=== PATIENT | male | born 1945 | race Caucasian/White ===

== ENCOUNTER 2018-11-06 14:30 | Emergency (ER) | payer MEDICARE, MEDICAID ==
[~2018-11-06] VITALS: Ht 182.9 cm; Wt 88.9 kg
--- NOTE | 2018-11-06 14:42 | NUR ---
ED Nurse Note: Pt came from [facility] s/p fall at 0500 this morning. Pt's xray results from SNF showed left shoulder dislocation. Pt denies having pain. No swelling or redness noted. Pt has a hx of right sided stroke w/ left sided deficit. Pt has DNR. Pt is A + O x4. Skin warm to touch.
[2018-11-06] MEDS ORDERED: XARELTO10 MG ORAL (14:43)
[2018-11-06] MEDS ORDERED: METOPROLOL SUCC50 MG ORAL (14:43)
[2018-11-06 14:45] VITALS: BP 126/74
--- NOTE | 2018-11-06 15:10 | Emergency Room Report ---
History of Present Illness General Chief Complaint: Multiple Trauma/Fall Source: Patient, Medical Record (Logan Pavon MD) Present Illness HPI Patient is a 73-year-old male sent in by residential after a fall. Patient had a fall this morning approximately 5 AM. He was noted to be taking anticoagulation. He reports of increased left upper extremity pain and difficulty with movement. Patient had prior history of anticoagulant use. He is currently in atrial fibrillation. He denies any other locations of pain currently. He was noted to have prior DNR status. (Logan Pavon MD) Allergies: Coded Allergies: No Known Allergies (Unverified , 11/06/18) Patient History Reviewed Nursing Documentation: PMH: Agreed; PSxH: Agreed (Logan Pavon MD) Nursing Documentation-PMH Past Medical History: No History, Except For Hx Cerebrovascular Accident: Yes (Logan Pavon MD) Review of Systems All Other Systems: negative except mentioned in HPI (Logan Pavon MD) Physical Exam Vital Signs Date Time Temp Pulse Resp B/P (MAP) Pulse Ox O2 Delivery O2 Flow Rate FiO2 11/06/18 14:35 97.5 86 16 126/74 98 Room Air 11/06/18 14:45 99 Sp02 EP Interpretation: reviewed, normal General Appearance: normal inspection, well appearing, no apparent distress, alert, Chronically Ill Head: atraumatic ENT: normal ENT inspection, hearing grossly normal, normal voice Neck: normal inspection, full range of motion, supple, no bony tend Respiratory: normal inspection, lungs clear, normal breath sounds, no respiratory distress, no retraction, no wheezing Cardiovascular #1: regular rate, rhythm, no edema Gastrointestinal: normal inspection, normal bowel sounds, non tender, soft, no guarding, no hernia Genitourinary: no CVA tenderness Musculoskeletal: back normal, decreased range of motion, other - left shoulder deformity without any soft tissue swelling Neurologic: normal inspection, alert, responsive, speech normal Psychiatric: normal inspection, judgement/insight normal, mood/affect normal Skin: normal inspection, normal color, no rash (Logan Pavon MD) Procedures Joint Reduction Joint Reduction : Consent: Verbal Joint Reduction Site: shoulder (L) Procedural Sedation: No Reduction Attempts: One Pre-Procedure NV Exam: Yes Post-Procedure NV Exam: Yes Post Joint Reduction Film: joint reduced Patient Tolerated: Well Complications: None Progress Anterior dislocation. Reduction with flexion of the elbow, abduction and raising the elbow towards the shoulder. Joint reduced. Patient tolerated the procedure well. Distal neurovascular intact. (Antonio Keyes MD) Medical Decision Making Diagnostic Impression: Primary Impression: Fall Additional Impressions: Shoulder joint dislocation Atrial fibrillation ER Course Patient presented for left shoulder pain after a fall. Differential diagnosis include was not limited to fracture, dislocation, AC separation, hematoma, sprain among others. Because of complexity of patient's case imaging studies were ordered. X-ray imaging of the left shoulder 3 views interpreted by radiology showed anterior shoulder dislocation. Patient shoulder was reduced with external rotation and elevation. The patient tolerated this well.Patient' s postprocedure x-ray showed no evident fracture.Patient was given oral metoprolol was noted to have improvement his heart rate. Patient was noted to have long-standing history of atrial fibrillation. Patient was placed in a shoulder immobilizer. Patient was discharged back to his residential. (Logan Pavon MD) Last Vital Signs Date Time Temp Pulse Resp B/P (MAP) Pulse Ox O2 Delivery O2 Flow Rate FiO2 11/06/18 14:45 137 13 Room Air 99 11/06/18 14:45 97.5 126/74 99 Status: improved (Logan Pavon MD) Disposition: [facility] Condition: Stable Logan Pavon MD Nov 06, 2018 15:10 Antonio Keyes MD Nov 06, 2018 15:46
--- NOTE | 2018-11-06 15:16 | NUR ---
ED Nurse Note: Notified radiology of xray order.
--- NOTE | 2018-11-06 15:20 | NUR ---
ED Nurse Note: Xray at the bedside.
[2018-11-06] MEDS ORDERED: Morphine Sulfate 4mg/ml Inj (IV USE ONLY) IVP ONE (15:45)
--- NOTE | 2018-11-06 15:48 | NUR ---
ED Nurse Note: Xray at the bedside.
--- NOTE | 2018-11-06 15:57 | NUR ---
ED Nurse Note: Shoulder immobilizer provided for the pt.
--- NOTE | 2018-11-06 16:25 | Diagnostic Imaging Report ---
Indication: Shoulder pain, status post reduction Technique: 2 views of the left shoulder Comparison: One half hour earlier Findings: Interim reduction of previously demonstrated left shoulder anterior dislocation. Somewhat high position of the humerus to relation to the acromion and glenoid, may in part be an artifact of projection but could also indicate chronic rotator cuff injury. No definite fractures. Impression: Successful reduction of previously demonstrated left shoulder dislocation
--- NOTE | 2018-11-06 16:27 | Diagnostic Imaging Report ---
Indication: Left shoulder pain Technique: 3 views of the left shoulder Comparison: none Findings: There is an anterior dislocation of the left shoulder. Small ossific density projected inferior to the glenoid could represent a small Bankart lesion or could be incidental. No other evidence of fracture. Impression: Positive for anterior left shoulder dislocation. This was apparently recognized as there is a subsequent post reduction image available Small Bankart lesion possible
[2018-11-06] MEDS ORDERED: Metoprolol Succinate XL 50mg tab ORAL ONE (16:30)
--- NOTE | 2018-11-06 16:44 | NUR ---
ED Nurse Note: Tried calling [facility] to notify of pt's arrival back to the SNF and no answer. Waiting for transport to pick pulling machine tender pt.
[2018-11-06] MEDS ORDERED: Metoprolol Succinate XL 25mg tab ORAL ONE (16:45)
[2018-11-06 17:05] VITALS: BP 122/80
--- NOTE | 2018-11-06 17:41 | NUR ---
ED Nurse Note: Gave report to [facility].
[2018-11-06] MEDS ORDERED: TRAMADOL HCL50 MG ORAL (17:43)
[2018-11-06] MEDS ORDERED: OXYCODONE HCL5 MG ORAL (17:43)
[2018-11-06] MEDS ORDERED: TYLENOL EXTRA500 MG ORAL (17:43)
[2018-11-06] MEDS ORDERED: ACETAMINOPHEN325 M1 ORAL (17:43)
[2018-11-06] MEDS ORDERED: FLEET ENEMA133 ML RECTAL (17:46)
[2018-11-06] MEDS ORDERED: MILK OF MA400 MG/51 ORAL (17:46)
[2018-11-06] MEDS ORDERED: DULCOLAX10 MG RC (17:46)
[2018-11-06 17:52] VITALS: BP 127/60
--- NOTE | 2018-11-06 17:55 | NUR ---
ED Nurse Note: Left ER via [facility] for [facility]. Shoulder immobilzer in place. Pt decided to keep bed medina on him. Pt refused to have it removed. Pt left ER w/ all belongings. No acute distress noted. No complaints of pain.
[2018-11-06] MEDS ORDERED: DUONEB 0.5-3(2.53 ML HHN (19:10)
[2018-11-06] MEDS ORDERED: GLUCOSE4 GM PO (19:12)
== END 2018-11-06 17:57 | disposition home or self-care (01) ==
LOC: EDBD 14:30 → EMR 16:48
DX: S43.005A Unspecified dislocation of left shoulder joint, initial encounter (principal); I48.91 Unspecified atrial fibrillation; W19.XXXA Unspecified fall, initial encounter; Y92.129 Unspecified place in nursing home as the place of occurrence of the external cause; Z86.73 Personal history of transient ischemic attack (TIA), and cerebral infarction without residual deficits; Z79.01 Long term (current) use of anticoagulants
CPT/HCPCS: 96374; 99284